=== PATIENT | female | born 1940 | race Caucasian/White ===

== ENCOUNTER 2017-12-10 12:39 | Emergency (ER) | payer OTHER, MEDICARE ==
[~2017-12-10 12:39] MED LIST: ATOR20TA42 PO; ENAB15TA PO; GLUC5TAB3 PO; GLUCTAB PO; LISI-360 PO; NIAC500 PO; OMEP20TA PO; SITA100 PO
[2017-12-10 12:46] VITALS: BP 143/74; PULSE 95; RESP 16; TEMP 98.5; O2SAT 97
[2017-12-10 13:44] LABS: AUTOMATED NEUTROPHIL # 0.7 TH/MM3 (1.8-7.7); BASOPHIL % 0.6 % (0.0-2.0); EOSINOPHIL % 0.9 % (0.0-4.0); HEMATOCRIT 42.5 % (35.0-46.0); HEMOGLOBIN 13.5 GM/DL (11.6-15.3); LYMPH % 22.4 % (9.0-44.0); LYMPHOCYTE # 0.5 TH/MM3 (1.0-4.8); MEAN CORPUSCULAR HEMOGLOBIN 25.5 PG (27.0-34.0); MEAN CORPUSCULAR HGB CONC 31.9 % (32.0-36.0); MEAN PLATELET VOLUME 10.5 FL (7.0-11.0); MONO % 42.7 % (0.0-8.0); MONOCYTE # 0.9 TH/MM3 (0-0.9); NEUT % 33.4 % (16.0-70.0); PLATELET COUNT 80 TH/MM3 (150-450); RED BLOOD COUNT 5.31 MIL/MM3 (4.00-5.30); RED CELL DISTRIBUTION WIDTH 15.6 % (11.6-17.2); WHITE BLOOD COUNT 2.2 TH/MM3 (4.0-11.0)
--- NOTE | 2017-12-10 13:45 | RADRPT ---
EXAM DATE: 12/10/2017 1:42 PM EDT AGE/SEX: 77 years / Female INDICATIONS: Chest Pain. Congestion. CLINICAL DATA: This is the patient's initial encounter. Patient reports that signs and symptoms have been present for 1 day and indicates a pain score of 0/10. MEDICAL/SURGICAL HISTORY: None. None. COMPARISON: No prior [place] exams available for comparison. FINDINGS: A single AP view of the chest demonstrates the lungs to be symmetrically aerated without evidence of mass, infiltrate or effusion. The cardiomediastinal contours are unremarkable. Osseous structures a re intact. CONCLUSION: No acute intrathoracic disease. Electronically signed by: Usama Preston MD 12/10/2017 1:43 PM EDT
[2017-12-10 14:04] LABS: BICARBONATE 26.7 MEQ/L (21.0-32.0); BLOOD UREA NITROGEN 11 MG/DL (7-18); CALCIUM 9.3 MG/DL (8.5-10.1); CHLORIDE 103 MEQ/L (98-107); CREATININE 1.26 MG/DL (0.50-1.00); GLOMERULAR FILTRATION RATE 41 ML/MIN (>89); GLUCOSE,RANDOM 249 MG/DL (74-106); MAGNESIUM 1.9 MG/DL (1.5-2.5); SODIUM (NA) 138 MEQ/L (136-145)
[2017-12-10 14:07] LABS: TROPONIN I LESS THAN 0.02 NG/ML (0.02-0.05)
--- NOTE | 2017-12-10 14:20 | PD ---
Physical Exam Narrative I, Dr. Eller, have reviewed the advance practice practitioner's documentation and am in agreement, met with the patient face to face, made the diagnosis, and the medical decision making was done by me. *My assessment and Findings: Post nasal drip vs. URI vs. bronchitis vs. pneumonia vs. atypical ACS 77yo F who is blind her with cough for a week. Said she feels nasal congestion dripping down his throat and that makes it worst. She feels better sitting up. Said she has an irritation in her midsternal region but no chest pain. Denies any fever, sob, n/v, abdominal pain, focal weakness or numbness. Pt went to urgent care and sent here for evaluation because her EKG was abnormal. EKG from urgent care reviewed and showed NSR 95bpm. Normal axis. Incomplete RBBB. No significant ST elevation or depression. Labs reviewed, WBC is low. H /H normal. Pt also with thrombocytopenia. Denies any bleeding. Pt have not been here for 10 years and feel that this is a chronic process that pt needs to be follow up with. She is very well appearing. CXR negative. Pt has no sob and O2 sat is 95% on RA. Pt given robitussin with codeine with some improvement. Data Data Last Documented VS Vital Signs Date Time Temp Pulse Resp B/P (MAP) Pulse Ox O2 Delivery O2 Flow Rate FiO2 12/10/17 15:03 93 20 168/77 (107) 95 Room Air 12/10/17 12:46 98.5 Orders Orders Complete Blood Count With Diff (12/10/17 13:11) Basic Metabolic Panel (Bmp) (12/10/17 13:11) Ckmb (Isoenzyme) Profile (12/10/17 13:11) Troponin I (12/10/17 13:11) Magnesium (Mg) (12/10/17 13:11) Chest, Single Ap (12/10/17 13:11) Iv Access Insert/Monitor (12/10/17 13:11) Ecg Monitoring (12/10/17 13:11) Oximetry (12/10/17 13:11) Electrocardiogram (12/10/17 ) Guaifen-Cod 200-20 Mg/10ml Liq (Robituss (12/10/17 15:15) Ed Discharge Order (12/10/17 15:19) Labs Laboratory Tests Test 12/10/17 13:30 White Blood Count 2.2 TH/MM3 Red Blood Count 5.31 MIL/MM3 Hemoglobin 13.5 GM/DL Hematocrit 42.5 % Mean Corpuscular Volume 80.0 FL Mean Corpuscular Hemoglobin 25.5 PG Mean Corpuscular Hemoglobin Concent 31.9 % Red Cell Distribution Width 15.6 % Platelet Count 80 TH/MM3 Mean Platelet Volume 10.5 FL Neutrophils (%) (Auto) 33.4 % Lymphocytes (%) (Auto) 22.4 % Monocytes (%) (Auto) 42.7 % Eosinophils (%) (Auto) 0.9 % Basophils (%) (Auto) 0.6 % Neutrophils # (Auto) 0.7 TH/MM3 Lymphocytes # (Auto) 0.5 TH/MM3 Monocytes # (Auto) 0.9 TH/MM3 Eosinophils # (Auto) 0.0 TH/MM3 Basophils # (Auto) 0.0 TH/MM3 CBC Comment AUTO DIFF Differential Total Cells Counted 100 Neutrophils % (Manual) 23 % Band Neutrophils % 9 % Lymphocytes % 29 % Monocytes % 35 % Eosinophils % 2 % Neutrophils # (Manual) 0.7 TH/MM3 Metamyelocytes 2 % Differential Comment FINAL DIFF MANUAL Platelet Estimate LOW Platelet Morphology Comment ENLARGED Ovalocytes 1+ Blood Urea Nitrogen 11 MG/DL Creatinine 1.26 MG/DL Random Glucose 249 MG/DL Calcium Level 9.3 MG/DL Magnesium Level 1.9 MG/DL Sodium Level 138 MEQ/L Potassium Level 4.3 MEQ/L Chloride Level 103 MEQ/L Carbon Dioxide Level 26.7 MEQ/L Anion Gap 8 MEQ/L Estimat Glomerular Filtration Rate 41 ML/MIN Total Creatine Kinase 43 U/L Troponin I LESS THAN 0.02 NG/ML MDM Supervised Visit with JAIME: Yes Interpretation(s) EKG: NSR 91bpm. RBBB. No significant ST elevation. Diagnosis Primary Impression: Bronchitis Patient Instructions: General Instructions Departure Forms: Tests/Procedures Additional Instruction: Please follow up with your primary care physician for further work up of low neutrophil and low platelet. Return to the ED if you have any symptoms. Med/Other Pt SpecificInfo: Prescription(s) given Scripts Guaifenesin-Codeine Liq (Guaifenesin-Codeine Liq) 100-10 Mg/5 Ml Soln 5 ML PO Q6H Y for COUGH, #120 ML 0 Refills Prov: Gia Eller DO 12/10/17 Azithromycin (Azithromycin) 250 Mg Tab 250 MG PO DIRECTED for Infection, #6 TAB 0 Refills Take 2 tabs (500 mg) on day 1 then 1 tab daily x 4 days. Prov: Gia Eller DO 12/10/17 Disposition: 01 DISCHARGE HOME Condition: Stable Gia Eller DO December 10, 2017 14:20
[2017-12-10 14:23] LABS: BANDS 9 % (0-6); LYMPHOCYTES 29 % (9-44); METAMYELOCYTES 2 % (0-1); MONOCYTES 35 % (0-8); NEUTROPHIL # MANUAL DIFF 0.7 TH/MM3 (1.8-7.7); OVALOCYTES 1+ (NORMAL); POLYS (SEG NEUTROPHILS) 23 % (16-70)
[2017-12-10] MEDS ORDERED: METO1TAB42 PO (14:53)
[2017-12-10] MEDS ORDERED: ENAB7.5T PO (14:53)
[2017-12-10] MEDS ORDERED: GLIM4TAB PO (14:53)
[2017-12-10] MEDS ORDERED: LOSA50TA PO (14:53)
[2017-12-10] MEDS ORDERED: OMEP20TA93 PO (14:53)
[2017-12-10] MEDS ORDERED: ACAR25TA PO (14:53)
[2017-12-10] MEDS ORDERED: SITA1TAB2 PO (14:53)
[2017-12-10] MEDS ORDERED: PIOG30TA4 PO (14:53)
[2017-12-10] MEDS ORDERED: ATOR20TA15 PO (14:53)
[2017-12-10 15:03] VITALS: BP 168/77; PULSE 93; RESP 20; O2SAT 95
[2017-12-10] MEDS ORDERED: guaiFENesin/CODEINE SYRUP 200 MG/20 MG/10 ML CUP PO ONE (15:15)
[2017-12-10] MEDS ORDERED: GUAI100S5 PO (15:20)
[2017-12-10] MEDS ORDERED: AZIT250T3 PO (15:20)
--- NOTE | 2017-12-10 15:35 | PD ---
HPI Chief Complaint: Medical Clearance Time Seen by Provider: 12:55 Travel History International Travel<30 days: No Contact w/Intl Traveler<30days: No Traveled to known affect area: No History of Present Illness HPI 77-year-old female that presents to the ED for evaluation of abnormal EKG. Per patient she was seen in urgent care secondary to having cough and congestion and chest tightness that she has had for about a week now. Per patient she feels like she has postnasal drip that goes to the back of her throat when she lays down it causes more cough. She states that she was hoping to go to the urgent care to get some antibiotics to get her bronchitis under control but apparently an EKG because she has a chest tightness and they told her that it was abnormal and told her to come here. She does have a history of hypertension and diabetes. Patient denies any shortness of breath. Per patient the cough is the most significant symptom. Per patient she feels like if she gets enough cough she can get rid of the pain. She states having some phlegm coming up with the cough. She states that the discomfort is more of a 2 out of 10 and more like an annoyance. She has no allergies to medication. Denies any sore throat. No ear pain. Some congestion per patient. No fevers chills or sweats. No sick contacts. No recent travel. No other medical issues at this time. PFSH Past Medical History Cardiac Catheterization: Yes ("NORMAL") High Cholesterol: Yes Diabetes: Yes Patient Takes Glucophage: No Diminished Hearing: No Genitourinary: Yes (BLADDER INCONTINENCE ) Hypertension: Yes Immunizations Current: Yes Tetanus Vaccination: Unknown Influenza Vaccination: Yes ?: Not Menopausal: Yes Social History Alcohol Use: No Tobacco Use: No Substance Use: No Allergies-Medications (Allergen,Severity, Reaction): Coded Allergies: No Known Allergies (Verified Adverse Reaction, Unknown, 12/10/17) Reported Meds & Prescriptions Reported Meds & Active Scripts Active Guaifenesin-Codeine Liq 100-10 Mg/5 Ml Soln 5 Ml PO Q6H PRN Azithromycin 250 Mg Tab 250 Mg PO DIRECTED Take 2 tabs (500 mg) on day 1 then 1 tab daily x 4 days. Reported Omeprazole 20 Mg Tab 20 Mg PO DAILY Enablex 24 HR (Darifenacin ER 24 HR) 7.5 Mg Tab 7.5 Mg PO HS Metoprolol Succinate ER 24 HR (Metoprolol Succinate) 25 Mg Tab 25 Mg PO DAILY Losartan (Losartan Potassium) 50 Mg Tab 50 Mg PO DAILY Acarbose 25 Mg Tab 25 Mg PO TID Take with first bite of meal. Pioglitazone (Pioglitazone HCl) 30 Mg Tab 30 Mg PO DAILY Januvia (Sitagliptin Phosphate) 100 Mg Tab 100 Mg PO DAILY Glimepiride 4 Mg Tab 4 Mg PO BIDAC Atorvastatin (Atorvastatin Calcium) 20 Mg Tab 20 Mg PO HS Review of Systems Except as stated in HPI: all other systems reviewed are Neg Physical Exam Narrative GENERAL: Well-nourished, well-developed patient in no apparent distress. SKIN: Warm and dry. HEAD: Atraumatic. Normocephalic. EYES: Pupils equal and round reactive to light and accommodation. No scleral icterus. No injection or drainage. ENT: No nasal bleeding or discharge. Mucous membranes pink and moist. TMs are clear with no sign of infection or perforation. No mastoid tenderness. Ear canals are intact bilaterally. No lymphadenopathy. Nostril mucosa is red and moist with clear mucus noted. No sinus tenderness to palpation noted. Tonsils are not enlarged or swollen. No ulvua Deviation. Tongue is midline. NECK: Trachea midline. No JVD. No meningeal signs noted CARDIOVASCULAR: Regular rate and rhythm. RESPIRATORY: No accessory muscle use. Clear to auscultation. Breath sounds equal bilaterally. GASTROINTESTINAL: Abdomen soft, non-tender, nondistended. Hepatic and splenic margins not palpable. MUSCULOSKELETAL: Extremities without clubbing, cyanosis, or edema. No obvious deformities. NEUROLOGICAL: Awake and alert. No obvious cranial nerve deficits. Motor grossly within normal limits. Five out of 5 muscle strength in the arms and legs. Normal speech. PSYCHIATRIC: Appropriate mood and affect; insight and judgment normal. Data Data Last Documented VS Vital Signs Date Time Temp Pulse Resp B/P (MAP) Pulse Ox O2 Delivery O2 Flow Rate FiO2 12/10/17 15:03 93 20 168/77 (107) 95 Room Air 12/10/17 12:46 98.5 Orders Orders Complete Blood Count With Diff (12/10/17 13:11) Basic Metabolic Panel (Bmp) (12/10/17 13:11) Ckmb (Isoenzyme) Profile (12/10/17 13:11) Troponin I (12/10/17 13:11) Magnesium (Mg) (12/10/17 13:11) Chest, Single Ap (12/10/17 13:11) Iv Access Insert/Monitor (12/10/17 13:11) Ecg Monitoring (12/10/17 13:11) Oximetry (12/10/17 13:11) Electrocardiogram (12/10/17 ) Guaifen-Cod 200-20 Mg/10ml Liq (Robituss (12/10/17 15:15) Ed Discharge Order (12/10/17 15:19) Labs Laboratory Tests Test 12/10/17 13:30 White Blood Count 2.2 TH/MM3 Red Blood Count 5.31 MIL/MM3 Hemoglobin 13.5 GM/DL Hematocrit 42.5 % Mean Corpuscular Volume 80.0 FL Mean Corpuscular Hemoglobin 25.5 PG Mean Corpuscular Hemoglobin Concent 31.9 % Red Cell Distribution Width 15.6 % Platelet Count 80 TH/MM3 Mean Platelet Volume 10.5 FL Neutrophils (%) (Auto) 33.4 % Lymphocytes (%) (Auto) 22.4 % Monocytes (%) (Auto) 42.7 % Eosinophils (%) (Auto) 0.9 % Basophils (%) (Auto) 0.6 % Neutrophils # (Auto) 0.7 TH/MM3 Lymphocytes # (Auto) 0.5 TH/MM3 Monocytes # (Auto) 0.9 TH/MM3 Eosinophils # (Auto) 0.0 TH/MM3 Basophils # (Auto) 0.0 TH/MM3 CBC Comment AUTO DIFF Differential Total Cells Counted 100 Neutrophils % (Manual) 23 % Band Neutrophils % 9 % Lymphocytes % 29 % Monocytes % 35 % Eosinophils % 2 % Neutrophils # (Manual) 0.7 TH/MM3 Metamyelocytes 2 % Differential Comment FINAL DIFF MANUAL Platelet Estimate LOW Platelet Morphology Comment ENLARGED Ovalocytes 1+ Blood Urea Nitrogen 11 MG/DL Creatinine 1.26 MG/DL Random Glucose 249 MG/DL Calcium Level 9.3 MG/DL Magnesium Level 1.9 MG/DL Sodium Level 138 MEQ/L Potassium Level 4.3 MEQ/L Chloride Level 103 MEQ/L Carbon Dioxide Level 26.7 MEQ/L Anion Gap 8 MEQ/L Estimat Glomerular Filtration Rate 41 ML/MIN Total Creatine Kinase 43 U/L Troponin I LESS THAN 0.02 NG/ML MDM Medical Decision Making Medical Screen Exam Complete: Yes Emergency Medical Condition: Yes Medical Record Reviewed: Yes Interpretation(s) CBC & BMP Diagram 12/10/17 13:30 Calcium Level 9.3, Magnesium Level 1.9 Last Impressions Chest X-Ray 12/10/17 1311 Signed Impressions: CONCLUSION: No acute intrathoracic disease. EKG shows sinus rhythm with no sign of acute ischemia and arrhythmia read by me and attending. CK and troponin negative. Differential Diagnosis Bronchitis versus a typical chest pain versus chest pain versus ACS Narrative Course 77-year-old female that presents to the ED for evaluation of abnormal EKG. Patient was properly examined and was found to have signs and symptoms which appear to be more consistent with bronchitis and postnasal drip. Chest tightness appears to be a typical for chest pain. Labs and imaging were ordered. Labs and imaging were essentially unremarkable for acute disease other than what appears to be low platelets and low white blood cell count. My attending spoke with the patient and evaluated the patient herself and agrees with discharge. Patient will be discharged home with prescription for azithromycin and codeine medication for cough. Patient was told to follow-up with primary care doctor for further evaluation of the abnormal labs. See ED worsening symptoms. Follow-up with PCP. Diagnosis Primary Impression: Bronchitis Patient Instructions: General Instructions Departure Forms: Tests/Procedures Additional Instructions: Please follow up with your primary care physician for further work up of low neutrophil and low platelet. Return to the ED if you have any symptoms. Med/Other Pt SpecificInfo: Prescription(s) given Scripts Guaifenesin-Codeine Liq (Guaifenesin-Codeine Liq) 100-10 Mg/5 Ml Soln 5 ML PO Q6H Y for COUGH, #120 ML 0 Refills Prov: Gia Eller DO 12/10/17 Azithromycin (Azithromycin) 250 Mg Tab 250 MG PO DIRECTED for Infection, #6 TAB 0 Refills Take 2 tabs (500 mg) on day 1 then 1 tab daily x 4 days. Prov: Gia Eller DO 12/10/17 Disposition: 01 DISCHARGE HOME Condition: Stable Juliano Leggett December 10, 2017 15:35
--- NOTE | 2017-12-11 13:24 | EKG ---
Date Performed: 12/10/2017 Time Performed: 15:00:03 PTAGE: 77 years EKG: Sinus rhythm LOW VOLTAGE IN PRECORDIAL LEADS RIGHT BUNDLE BRANCH BLOCK NONSPECIFIC T-WAVE CHANGE ABNORMAL ECG Com pared to PREVIOUS TRACING , the RBBB and T-wave changes are new. PREVIOUS TRACIN07/17/2007 21.2 5 DOCTOR: Lowell Carvalho Interpretating Date/Time 12/11/2017 13:23:59
== END 2017-12-10 16:00 | disposition home or self-care (01) ==
LOC: NEPC 12:39
DX: J40 Bronchitis, not specified as acute or chronic (principal); R07.89 Other chest pain; E11.9 Type 2 diabetes mellitus without complications; E78.00 Pure hypercholesterolemia, unspecified; I10 Essential (primary) hypertension; Z79.84 Long term (current) use of oral hypoglycemic drugs; Z79.899 Other long term (current) drug therapy
CPT/HCPCS: 71045; 80048; 82550; 83735; 84484; 85007; 85027; 93005; 99285